=== PATIENT | female | born 1985 | race Caucasian/White ===

== ENCOUNTER → 2017-06-13 11:16 | Outpatient (CLI) | payer OTHER ==
[~2017-06-13 11:16] MED LIST: AMOX1TAB12 PO; BUCALSEP SPRAY30 ML MM; CATAFLAM50 MG PO; CEFTIN500 MG PO; CIPRO500 MG PO; DICY20TA PO; ELOCON45 G1 TOP; FLONASE16 GM NS; GILTUSS TR TAB1 EACH PO; LEVAQUIN500 MG PO; MACROBID 100 M100 MG; MOMETASONE FURO15 GM TP; PRILOSEC20 MG PO; SEPTRA DS TABLE1 TAB PO; SILVADENE20 GM TOP; SILVADENE50 GM TP; TOBREX5 ML OP; URETRON D-S TAB1 TAB PO; URETRON DS1 TAB PO; ZANTAC300 MG PO; ZITHROMAX TRI-500 MG PO; ZITHROMAX500 MG PO; ZYRTEC10 MG PO
== END | disposition home or self-care (01) ==
LOC: PPHC LAB 11:16
DX: N30.00 Acute cystitis without hematuria (principal)

== ENCOUNTER → 2017-06-16 | Outpatient (CLI) | payer OTHER ==
[~2017-06-16] VITALS: Ht 152.4 cm; Wt 63.5 kg
== END | disposition home or self-care (01) ==
LOC: PPHC 10:37
DX: B34.9 Viral infection, unspecified (principal); J11.1 Influenza due to unidentified influenza virus with other respiratory manifestations

== ENCOUNTER → 2017-06-20 | Outpatient (CLI) | payer OTHER ==
[~2017-06-20] VITALS: Ht 152.4 cm; Wt 63.5 kg
== END | disposition home or self-care (01) ==
LOC: PPHC 08:31
DX: J98.8 Other specified respiratory disorders (principal)

== ENCOUNTER → 2017-06-22 | Outpatient (CLI) | payer OTHER | END | disposition home or self-care (01) | LOC: PPHC LAB 15:17 | DX: Z01.89 Encounter for other specified special examinations (principal) ==

== ENCOUNTER 2017-06-27 10:29 | Outpatient (CLI) | payer OTHER | END 2017-06-27 14:51 | disposition home or self-care (01) | LOC: RAD 10:29 | DX: N30.00 Acute cystitis without hematuria (principal); J15.7 Pneumonia due to Mycoplasma pneumoniae ==

== ENCOUNTER → 2017-06-27 | Outpatient (CLI) | payer OTHER | END | disposition home or self-care (01) | LOC: PPHC 12:37 | DX: Z01.89 Encounter for other specified special examinations (principal); E78.1 Pure hyperglyceridemia ==

== ENCOUNTER → 2017-06-27 | Outpatient (CLI) | payer OTHER | END | disposition home or self-care (01) | LOC: PPHC LAB 16:57 | DX: Z01.89 Encounter for other specified special examinations (principal) ==

== ENCOUNTER 2017-06-28 09:32 | Outpatient (CLI) | payer OTHER | END 2017-06-28 09:53 | disposition home or self-care (01) | LOC: LAB 09:32 | DX: A27.89 Other forms of leptospirosis (principal) ==

== ENCOUNTER → 2017-06-29 | Outpatient (CLI) | payer OTHER | END | disposition home or self-care (01) | LOC: PPHC LAB 12:15 | DX: O03.83 Metabolic disorder following complete or unspecified spontaneous abortion (principal) ==

== ENCOUNTER → 2017-06-29 | Emergency (ER) | payer OTHER | END | disposition left against medical advice (07) | LOC: ER 19:47 | DX: Z53.20 Procedure and treatment not carried out because of patient's decision for unspecified reasons (principal) ==

== ENCOUNTER 2017-07-01 09:04 | Outpatient (CLI) | payer OTHER | END 2017-07-01 09:29 | disposition home or self-care (01) | LOC: LAB 09:04 | DX: R74.8 Abnormal levels of other serum enzymes (principal); R50.9 Fever, unspecified; R10.9 Unspecified abdominal pain; R53.1 Weakness ==

== ENCOUNTER → 2017-07-01 | Outpatient (CLI) | payer OTHER | END | disposition home or self-care (01) | LOC: TOM 08:27 | DX: N39.0 Urinary tract infection, site not specified (principal) ==

== ENCOUNTER → 2017-07-01 | Outpatient (CLI) | payer OTHER ==
[~2017-07-01] VITALS: Ht 152.4 cm; Wt 63.0 kg
== END | disposition home or self-care (01) ==
LOC: PPHC 15:48
DX: Z01.89 Encounter for other specified special examinations (principal)

== ENCOUNTER → 2017-07-04 | Outpatient (CLI) | payer OTHER | END | disposition home or self-care (01) | LOC: PPHC LAB 11:39 | DX: Z01.89 Encounter for other specified special examinations (principal) ==

== ENCOUNTER → 2017-07-04 | Outpatient (CLI) | payer OTHER ==
[~2017-07-04] VITALS: Ht 152.4 cm; Wt 62.6 kg
== END | disposition home or self-care (01) ==
LOC: PPHC 14:31
DX: Z01.89 Encounter for other specified special examinations (principal)

== ENCOUNTER → 2017-07-11 | Outpatient (CLI) | payer OTHER | END | disposition home or self-care (01) | LOC: PPHC LAB 15:15 | DX: Z01.89 Encounter for other specified special examinations (principal) ==

== ENCOUNTER → 2017-07-18 | Outpatient (CLI) | payer OTHER | END | disposition home or self-care (01) | LOC: PPHC LAB 14:34 | DX: Z01.89 Encounter for other specified special examinations (principal) ==

== ENCOUNTER 2017-08-09 10:04 | Outpatient (CLI) | payer OTHER | END 2017-08-09 17:00 | disposition home or self-care (01) | LOC: MAMO-SONO 10:04 | DX: N60.11 Diffuse cystic mastopathy of right breast (principal); N60.12 Diffuse cystic mastopathy of left breast; N60.09 Solitary cyst of unspecified breast ==

== ENCOUNTER → 2017-08-12 | Outpatient (CLI) | payer OTHER | END | disposition home or self-care (01) | LOC: PPHC LAB 13:17 | DX: Z01.89 Encounter for other specified special examinations (principal) ==

== ENCOUNTER → 2017-08-12 | Outpatient (CLI) | payer OTHER ==
[~2017-08-12] VITALS: Ht 152.4 cm; Wt 63.5 kg
== END | disposition home or self-care (01) ==
LOC: PPHC 12:48
DX: B34.9 Viral infection, unspecified (principal)

== ENCOUNTER → 2017-09-14 | Outpatient (CLI) | payer OTHER | END | disposition home or self-care (01) | LOC: PPHC LAB 10:17 | DX: Z01.89 Encounter for other specified special examinations (principal) ==

== ENCOUNTER → 2017-09-14 | Outpatient (CLI) | payer OTHER | END | disposition home or self-care (01) | LOC: PPHC 09:23 | DX: B34.9 Viral infection, unspecified (principal) ==

== ENCOUNTER → 2017-09-21 | Outpatient (CLI) | payer OTHER | END | disposition home or self-care (01) | LOC: PPHC LAB 12:23 | DX: Z01.89 Encounter for other specified special examinations (principal) ==

== ENCOUNTER → 2017-11-15 06:31 | Outpatient (CLI) | payer OTHER | END | disposition home or self-care (01) | LOC: LAB 06:31 | DX: R71.0 Precipitous drop in hematocrit (principal); Z11.3 Encounter for screening for infections with a predominantly sexual mode of transmission; Z13.220 Encounter for screening for lipoid disorders; Z13.9 Encounter for screening, unspecified; R94.6 Abnormal results of thyroid function studies; E55.9 Vitamin D deficiency, unspecified ==

== ENCOUNTER 2018-05-04 15:18 | Emergency (ER) | payer OTHER ==
[~2018-05-04] VITALS: Ht 157.5 cm; Wt 68.0 kg
== END 2018-05-04 17:55 | disposition home or self-care (01) ==
LOC: ER 15:18
DX: N39.0 Urinary tract infection, site not specified (principal)

== ENCOUNTER → 2018-06-30 | Outpatient (CLI) | payer OTHER | END | disposition home or self-care (01) | LOC: LAB 09:23 | DX: J11.1 Influenza due to unidentified influenza virus with other respiratory manifestations (principal); J06.9 Acute upper respiratory infection, unspecified ==

== ENCOUNTER 2018-08-26 15:06 | Emergency (ER) | payer OTHER ==
[~2018-08-26] VITALS: Ht 157.5 cm; Wt 65.8 kg
== END 2018-08-26 16:43 | disposition home or self-care (01) ==
LOC: ER 15:06
DX: B34.9 Viral infection, unspecified (principal)

== ENCOUNTER 2018-12-08 11:25 | Emergency (ER) | payer OTHER ==
[~2018-12-08] VITALS: Ht 157.5 cm; Wt 68.0 kg
[2018-12-08] MEDS ORDERED: KETO10TA2 PO (14:24)
[2018-12-08] MEDS ORDERED: AMOX-CLAV 875-1 EACH PO (14:24)
[2018-12-08] MEDS ORDERED: INTESTINEX680 M1 PO (14:24)
== END 2018-12-08 14:29 | disposition home or self-care (01) ==
LOC: ER 11:25
DX: L03.115 Cellulitis of right lower limb (principal); L02.415 Cutaneous abscess of right lower limb

== ENCOUNTER 2019-02-26 15:09 | Emergency (ER) | payer OTHER ==
[~2019-02-26] VITALS: Ht 157.5 cm; Wt 68.0 kg
[~2019-02-26 15:09] MED LIST changes: +AMOX-CLAV 875-1 EACH PO; +INTESTINEX680 M1 PO; +KETO10TA2 PO
[2019-02-26] MEDS ORDERED: CIPRO500 MG PO (20:03)
== END 2019-02-26 20:28 | disposition home or self-care (01) ==
LOC: ER 15:09
DX: N39.0 Urinary tract infection, site not specified (principal)

== ENCOUNTER 2019-03-12 14:42 | Emergency (ER) | payer OTHER ==
[~2019-03-12] VITALS: Ht 157.5 cm; Wt 68.0 kg
[2019-03-12] MEDS ORDERED: KETO10TA2 PO (16:26)
[2019-03-12] MEDS ORDERED: CLEOCIN HCL150 MG PO (16:26)
[2019-03-12] MEDS ORDERED: INTESTINEX680 M1 PO (16:26)
[2019-03-12] MEDS ORDERED: ZITHROMAX500 MG PO (16:26)
== END 2019-03-12 16:37 | disposition home or self-care (01) ==
LOC: ER 14:42
DX: J32.8 Other chronic sinusitis (principal); B96.0 Mycoplasma pneumoniae [M. pneumoniae] as the cause of diseases classified elsewhere

== ENCOUNTER 2019-03-13 13:38 | Outpatient (CLI) | payer OTHER ==
[~2019-03-13 13:38] MED LIST changes: +CLEOCIN HCL150 MG PO
== END 2019-03-13 13:44 | disposition home or self-care (01) ==
LOC: LAB 13:38
DX: J34.0 Abscess, furuncle and carbuncle of nose (principal); L02.01 Cutaneous abscess of face

== ENCOUNTER 2019-11-30 13:13 | Emergency (ER) | payer OTHER ==
[~2019-11-30] VITALS: Ht 157.5 cm; Wt 65.8 kg
[2019-11-30] MEDS ORDERED: KETO10TA2 PO (15:12)
== END 2019-11-30 15:09 | disposition home or self-care (01) ==
LOC: ER 13:13
DX: M25.561 Pain in right knee (principal); M79.671 Pain in right foot

== ENCOUNTER 2020-01-03 15:07 | Emergency (ER) | payer OTHER ==
[~2020-01-03] VITALS: Ht 157.5 cm; Wt 68.0 kg
== END 2020-01-03 19:22 | disposition home or self-care (01) ==
LOC: ER 15:07
DX: B34.9 Viral infection, unspecified (principal)

== ENCOUNTER 2020-01-11 07:17 | Emergency (ER) | payer OTHER ==
[~2020-01-11] VITALS: Ht 157.5 cm; Wt 68.0 kg
== END 2020-01-11 09:19 | disposition home or self-care (01) ==
LOC: ER 07:17
DX: H53.8 Other visual disturbances (principal); R42 Dizziness and giddiness; R51 Headache

== ENCOUNTER 2020-04-14 13:06 | Outpatient (CLI) | payer OTHER ==
[2020-04-15] MEDS ORDERED: RAYOS5 MG PO (12:02)
[2020-04-15] MEDS ORDERED: ACETAMINOPHEN500 M1 PO (13:06)
[2020-04-15] MEDS ORDERED: ULTRAM50 MG PO (13:51)
== END 2020-04-14 16:25 | disposition home or self-care (01) ==
LOC: MRI 13:06
DX: H46.01 Optic papillitis, right eye (principal)
CPT/HCPCS: 70543

== ENCOUNTER 2020-04-15 11:51 | Emergency (ER) | payer OTHER ==
[~2020-04-15] VITALS: Ht 157.5 cm; Wt 68.0 kg
[2020-04-15] MEDS ORDERED: RAYOS5 MG PO (12:02)
[2020-04-15] MEDS ORDERED: ACETAMINOPHEN500 M1 PO (13:06)
[2020-04-15] MEDS ORDERED: ULTRAM50 MG PO (13:51)
== END 2020-04-15 13:59 | disposition home or self-care (01) ==
LOC: ER 11:51
DX: G44.89 Other headache syndrome (principal); Z03.818 Encounter for observation for suspected exposure to other biological agents ruled out

== ENCOUNTER 2020-05-25 07:50 | Emergency (ER) | payer OTHER ==
[~2020-05-25] VITALS: Ht 157.5 cm; Wt 70.3 kg
[~2020-05-25 07:50] MED LIST changes: +ACETAMINOPHEN500 M1 PO; +RAYOS5 MG PO; +ULTRAM50 MG PO
== END 2020-05-25 08:31 | disposition home or self-care (01) ==
LOC: ER 07:50
DX: H46.8 Other optic neuritis (principal)

== ENCOUNTER 2020-11-05 10:21 | Emergency (ER) | payer OTHER ==
[~2020-11-05] VITALS: Ht 157.5 cm; Wt 753.0 kg
[2020-11-05] MEDS ORDERED: STRESS-C WITH1 EACH (10:30)
[2020-11-05] MEDS ORDERED: KETO10TA2 PO (16:06)
[2020-11-05] MEDS ORDERED: MUCINEX DM ER1 EAC1 PO (16:06)
== END 2020-11-05 16:06 | disposition home or self-care (01) ==
LOC: ER 10:21
DX: B34.9 Viral infection, unspecified (principal); Z11.52 Encounter for screening for COVID-19

== ENCOUNTER 2021-01-29 07:52 | Emergency (ER) | payer OTHER ==
[~2021-01-29] VITALS: Ht 157.5 cm; Wt 70.3 kg
[~2021-01-29 07:52] MED LIST changes: +MUCINEX DM ER1 EAC1 PO; +STRESS-C WITH1 EACH
[2021-01-29] MEDS ORDERED: PERCOCET 5-3251 EACH PO (14:40)
[2021-01-29] MEDS ORDERED: LEVOFLOXACIN500 MG PO (14:40)
== END 2021-01-29 14:56 ==
LOC: ER 07:52
DX: J06.9 Acute upper respiratory infection, unspecified (principal); B96.0 Mycoplasma pneumoniae [M. pneumoniae] as the cause of diseases classified elsewhere; B34.9 Viral infection, unspecified; N39.0 Urinary tract infection, site not specified; Z03.818 Encounter for observation for suspected exposure to other biological agents ruled out